=== PATIENT | male | born 1990 | race African-American/Black ===

== ENCOUNTER 2018-07-26 08:08 | Day surgery (SDC) | payer OTHER ==
[~2018-07-26] VITALS: Ht 190.5 cm; Wt 83.0 kg
--- NOTE | ~2018-07-26 | OP ---
PATIENT NAME: LEONIDAS CURRY MEDICAL RECORD: [id number] :86 LOCATION:D.OPS ADMISSION DATE: SURGEON: SHIKHA COLLAZO MD DATE OF OPERATION: 07/26/2018 PREOPERATIVE DIAGNOSIS: Traumatic subcutaneous hematoma of the right lateral leg. POSTOPERATIVE DIAGNOSIS: Traumatic subcutaneous hematoma of the right lateral leg. PROCEDURE: Incision and evacuation of traumatic subcutaneous hematoma of the right lateral leg. SURGEON: Shikha Collazo MD BACK FILLER OPERATOR: None. BLOOD LOSS: Minimal. ANESTHESIA: General. COMPLICATIONS: None. The risks, possible complications, and alternatives to the procedure were explained to the patient. He elects to proceed. The skin over the hematoma is dark. There is no definite eschar however. I told the patient that this procedure was indicated in order to help prevent necrosis of the overlying skin or necrosis of the underlying muscle. At the time of the operation, after evacuating the hematoma, it does appear that there has been some pressure necrosis of the overlying adipose tissue as there was a "divot" after evacuation of the hematoma. OPERATIVE COURSE: The patient was conveyed to the operating room electively on 07/26/2018. General anesthesia was induced by the anesthesia staff. The right lower extremity was sterilely prepped and draped. A small axial incision was accomplished overlying the hematoma. I was able to express the hematoma. There was some necrotic fatty tissue that was present. I inserted a suction cannula into the subcutaneous cavity and suctioned more of the liquefied hematoma as well as necrotic adipose tissue. I then irrigated with half strength peroxide. I again suctioned in the subcutaneous pocket. A sterile dressing was then applied. The patient was then extubated and conveyed to the postanesthesia care unit, where he was in stable condition. There is no need for the patient to follow up with me in the office unless he develops a complication related to this operative procedure. TRANSINT:[id number] Voice Confirmation ID: [id number] DOCUMENT ID: [id number] OPERATIVE REPORT [id number] CURRYPATLEONIDAS SHIKHA COLLAZO MD at 1403 CC: TAMIKO PARIKH MD, SHIKHA JUNIOR MD, NANCI MOSHER MD and [id number] L DICTATION DATE: 07/26/18 1056 SHIRRER: 07/26/18 1118 [facility] 07/26/18 [facility] [address] [facility] [address]
[2018-07-26] MEDS ORDERED: AMOXICILLIN500 M1 PO (09:07)
[2018-07-26 09:10] VITALS: BP 131/77; Ht 190.5 cm; Wt 83.0 kg
== END 2018-07-26 13:05 | disposition home or self-care (01) ==
LOC: D.OPS 08:08
DX: S80.11XA Contusion of right lower leg, initial encounter (principal); X58.XXXA Exposure to other specified factors, initial encounter; F17.210 Nicotine dependence, cigarettes, uncomplicated